=== PATIENT | female | born 1960 | race African-American/Black ===

== ENCOUNTER 2020-07-13 13:34 | Emergency (ER) | payer OTHER, MEDICAID ==
[~2020-07-13] VITALS: Ht 160 cm; Wt 45.0 kg
[2020-07-13 16:10] VITALS: BP 137/92
== END 2020-07-13 16:18 | disposition home or self-care (01) ==
LOC: ER 13:34
DX: K63.1 Perforation of intestine (nontraumatic) (principal); I10 Essential (primary) hypertension; F12.10 Cannabis abuse, uncomplicated; Z48.02 Encounter for removal of sutures; Z98.890 Other specified postprocedural states
CPT/HCPCS: 93005; 99283

== ENCOUNTER 2022-07-10 20:17 | Emergency (ER) | payer MEDICAID, OTHER ==
[~2022-07-10] VITALS: Ht 160 cm; Wt 48.0 kg
[2022-07-11 08:34] LABS: BASOPHILS % 0.6 % (0.0-2.0); EOSINOPHILS % 2.6 % (0.0-5.0); HEMATOCRIT. 37.5 % (36.0-48.0); HEMOGLOBIN. 12.5 g/dL (12.0-16.0); LYMPHOCYTES % 42.7 % (20.0-50.0); MEAN CORPUSCULAR HEMOGLOBIN 31.6 pg (28.0-32.0); MEAN CORPUSCULAR VOLUME 94.5 fL (81.0-99.0); MEAN PLATELET VOLUME 9.7 fl (7.4-10.4); MONOCYTES % 9.5 % (2.0-8.0); NEUTROPHILS % 44.6 % (40.0-76.0); PLATELET 218 x1000/uL (130-400); RED BLOOD CELL COUNT 3.97 mill/uL (4.2-5.4); RED CELL DISTRIBUTION WIDTH 14.3 % (11.6-14.6)
[2022-07-11 08:41] LABS: CHLORIDE 108 mEq/L (98-107)
[2022-07-11] MEDS ORDERED: IPRATROPIUM/ALBUTEROL 0.5-3(2.5)MG/3ML NEB HHN NR (10:00)
[2022-07-11] MEDS ORDERED: GUAIFENESIN 200MG/10ML SUGAR FREE UDC PO NR (10:00)
[2022-07-11] MEDS ORDERED: PREDNISONE 20MG TABLET PO ONE (10:00)
[2022-07-11] MEDS ORDERED: DEXAMETHASONE 4MG TABLET PO NR (11:00)
[2022-07-11 11:45] VITALS: BP 148/78
== END 2022-07-11 12:00 | disposition home or self-care (01) ==
LOC: ER 20:17
DX: R06.02 Shortness of breath (principal); I10 Essential (primary) hypertension; R73.03 Prediabetes; F12.10 Cannabis abuse, uncomplicated; F17.210 Nicotine dependence, cigarettes, uncomplicated; Z98.890 Other specified postprocedural states; Z93.1 Gastrostomy status; Z86.16 Personal history of COVID-19
CPT/HCPCS: 36415; 71045; 80053; 84484; 85025; 93005; 94640; 99285; J8540; Z7610